=== PATIENT | female | born 1950 | race Caucasian/White ===

== ENCOUNTER → 2020-12-15 13:53 | Outpatient (CLI) | payer MEDICARE, MEDICAID, SELFPAY ==
[2019-08-06 15:39] VITALS: BMI 26.5
--- NOTE | 2020-12-15 13:55 | ECHOD_ITS ---
Reason For Study: PALPITATIONS Procedure This was a 2D Doppler, Color Flow transthoracic echocardiogram. The study was technically difficult. Exam performed in department. Left Ventricle Normal LV size. Left ventricular systolic function is normal. The estimated ejection fraction is 60 %. Diastolic function is indeterminate. No regional wall motion abnormalities noted. Right Ventricle Normal RV size. Normal systolic function. Atria Normal left atrium. Normal right atrium. No doppler evidence for ASD. Mitral Valve There is no mitral annular calcification. Normal mitral valve. Mild (1+) mitral valve insufficiency. Tricuspid Valve Normal tricuspid valve. Trivial tricuspid valve insufficiency. Unable to estimate RV systolic pressure/pulmonary artery pressure due to technically difficult study. Aortic Valve Trisinus/trileaflet aortic valve. Normal aortic valve. Pulmonic Valve The pulmonic valve is not well visualized. Great Vessels The aortic root is not well visualized. Pericardium/Pleural No pericardial effusion. MMode/2D Measurements & Calculations LVIDd: 4.8 cm IVSd: 1.0 cm LAV(MOD-bp): 53.9 ml LVIDs: 3.2 cm LVPWd: 1.0 cm LAV(MOD-bp) Indexed: 32.0 ml/m2 RVDd: 2.7 cm FS: 33.7 % LAV(MOD-sp2): 48.1 ml LAV(MOD-sp4): 52.4 ml LA dimension(2D): 3.6 cm LA A4 area: 17.0 cm2 RA A4 area: 9.2 cm2 Time Measurements MV dec time: 0.20 sec Doppler Measurements & Calculations MV E max sunny: 84.3 cm/sec Lat Peak E' Sunny: 7.6 cm/sec Med Peak E' Sunny: 6.5 cm/sec MV A max sunny: 94.2 cm/sec E/E' lat: 11.2 E/E' med: 13.1 MV E/A: 0.90 Ao V2 max: 132.1 cm/sec LV V1 max: 92.0 cm/sec PA V2 max: 129.3 cm/sec Ao max P.0 mmHg LV V1 max P.4 mmHg ECHO/Echo Complete Interpretation Summary The study was technically difficult. Left ventricular systolic function is normal. The estimated ejection fraction is 60 %. Mild (1+) mitral valve insufficiency. Trivial tricuspid valve insufficiency. Unable to estimate RV systolic pressure/pulmonary artery pressure due to techni whit difficult study. Diastolic function is indeterminate. Ordering Physician: Andrea Amato Referring Physician: Saundra Lion Performed By: Cammie Krause RDCS, RVT
== END ==
PROVIDERS: PCP Nurse Practitioner Family; Referring Provider Internal Medicine Cardiovascular Disease; Visit Provider Internal Medicine Cardiovascular Disease
DX: I25.10 Atherosclerotic heart disease of native coronary artery without angina pectoris (principal); I10 Essential (primary) hypertension; E78.00 Pure hypercholesterolemia, unspecified; R00.2 Palpitations; Z95.5 Presence of coronary angioplasty implant and graft
CPT/HCPCS: 93306